=== PATIENT | female | born 1935 | race Caucasian/White ===

== ENCOUNTER 2018-10-23 16:16 | Emergency (ER) | payer MEDICARE, MEDICAID ==
[~2018-10-23] VITALS: Ht 157.5 cm; Wt 97.0 kg
[2018-10-23 16:53] VITALS: BP 136/79
== END 2018-10-23 17:24 | disposition left against medical advice (07) ==
LOC: ER 16:16
DX: K62.89 Other specified diseases of anus and rectum (principal); Z53.21 Procedure and treatment not carried out due to patient leaving prior to being seen by health care provider

== ENCOUNTER 2021-10-12 19:57 | Inpatient (IN) | payer MEDICARE, MEDICAID ==
[~2021-10-12] VITALS: Ht 165.1 cm; Wt 94.8 kg
[2021-10-12 23:37] LABS: BASOPHILS % 0.7 % (0.0-2.0); CHLORIDE 98 mEq/L (98-107); HEMATOCRIT. 42.1 % (36.0-48.0); HEMOGLOBIN. 14.3 g/dL (12.0-16.0); LYMPHOCYTES % 20.8 % (20.0-50.0); MEAN CORPUSCULAR HEMOGLOBIN 31.5 pg (28.0-32.0); MEAN CORPUSCULAR VOLUME 93.1 fL (81.0-99.0); MEAN PLATELET VOLUME 7.7 fl (7.4-10.4); MONOCYTES % 12.3 % (2.0-8.0); NEUTROPHILS % 66.2 % (40.0-76.0); PLATELET 239 x1000/uL (130-400); RED BLOOD CELL COUNT 4.53 mill/uL (4.2-5.4); RED CELL DISTRIBUTION WIDTH 13.7 % (11.6-14.6)
[2021-10-13] MEDS ORDERED: ONDANSETRON HCL 4MG/2ML INJ IV PRN (08:00)
[2021-10-13] MEDS ORDERED: ACETAMINOPHEN 325MG TABLET PO PRN (08:00)
[2021-10-13] MEDS ORDERED: LEVO100T9 PO (08:09)
[2021-10-13] MEDS ORDERED: FERR325T30 PO (08:09)
[2021-10-13] MEDS ORDERED: OMEP1CAP32 PO (08:09)
[2021-10-13] MEDS: LEVOTHYROXINE SODIUM 100MCG TABLET PO SCH (08:59)
[2021-10-13] MEDS: OMEPRAZOLE 20MG CAPSULE EXTENDED RELEASE PO SCH (08:59)
[2021-10-13] MEDS: ENOXAPARIN 40MG/0.4ML SYR SUBCUT SCH (08:59)
[2021-10-13] MEDS ORDERED: ALBUTEROL 6.7GM HFA INHALER ORI PRN (14:00)
[2021-10-13] MEDS: DEXAMETHASONE 10 MG/ML VIAL IV SCH (14:30)
[2021-10-13] MEDS: ACETAMINOPHEN 325MG TABLET PO PRN (21:14)
[2021-10-13] MEDS ORDERED: LORAZEPAM 2MG/ML CPJ IV NR (21:30)
[2021-10-13 22:32] LABS: BASOPHILS % 0.5 % (0.0-2.0); HEMATOCRIT. 39.2 % (36.0-48.0); HEMOGLOBIN. 13.5 g/dL (12.0-16.0); LYMPHOCYTES % 14.1 % (20.0-50.0); MEAN CORPUSCULAR HEMOGLOBIN 31.3 pg (28.0-32.0); MONOCYTES % 9.2 % (2.0-8.0); NEUTROPHILS % 76.2 % (40.0-76.0); PLATELET 276 x1000/uL (130-400); RED BLOOD CELL COUNT 4.31 mill/uL (4.2-5.4); RED CELL DISTRIBUTION WIDTH 13.3 % (11.6-14.6)
[2021-10-13 22:35] LABS: CHLORIDE 97 mEq/L (98-107)
[2021-10-14] MEDS: OMEPRAZOLE 20MG CAPSULE EXTENDED RELEASE PO SCH (11:03)
[2021-10-14] MEDS: DEXAMETHASONE 10 MG/ML VIAL IV SCH (11:03)
[2021-10-14] MEDS: LEVOTHYROXINE SODIUM 100MCG TABLET PO SCH (11:03)
[2021-10-14] MEDS: ENOXAPARIN 40MG/0.4ML SYR SUBCUT SCH (11:03)
[2021-10-14 21:44] VITALS: BP 119/68
[2021-10-14 22:30] VITALS: BP 119/68
[2021-10-14] MEDS ORDERED: GABA-529 PO (23:34)
[2021-10-14] MEDS ORDERED: FURO40TA5 PO (23:34)
[2021-10-14] MEDS ORDERED: ASPI-1497 PO (23:34)
[2021-10-14] MEDS ORDERED: ASCO125T PO (23:34)
[2021-10-14] MEDS ORDERED: LORA-249 PO (23:34)
[2021-10-14] MEDS ORDERED: ATEN-42 PO (23:34)
[2021-10-14] MEDS ORDERED: SPIR25TA PO (23:34)
[2021-10-14] MEDS ORDERED: MIRT-89 PO (23:34)
[2021-10-14] MEDS ORDERED: PYRI50CA PO (23:34)
[2021-10-14] MEDS ORDERED: ZINC50TA69 PO (23:34)
[2021-10-14] MEDS ORDERED: CELE100C97 PO (23:34)
[2021-10-14] MEDS ORDERED: DOCU-138 PO (23:34)
[2021-10-15 00:15] VITALS: BP 121/77
[2021-10-15] MEDS: ACETAMINOPHEN 325MG TABLET PO PRN ×2 (02:23→13:20)
[2021-10-15 04:00] VITALS: BP 148/65
[2021-10-15] MEDS ORDERED: DEXT 5%/0.45% NACL 1000ML 1,000 ML IV SCH (04:45)
[2021-10-15 07:06] LABS: BASOPHILS % 0.1 % (0.0-2.0); HEMATOCRIT. 38.5 % (36.0-48.0); HEMOGLOBIN. 13.4 g/dL (12.0-16.0); LYMPHOCYTES % 8.4 % (20.0-50.0); MEAN CORPUSCULAR HEMOGLOBIN 31.7 pg (28.0-32.0); MEAN CORPUSCULAR VOLUME 91.1 fL (81.0-99.0); MEAN PLATELET VOLUME 7.8 fl (7.4-10.4); MONOCYTES % 8.9 % (2.0-8.0); NEUTROPHILS % 82.6 % (40.0-76.0); PLATELET 320 x1000/uL (130-400); RED BLOOD CELL COUNT 4.22 mill/uL (4.2-5.4); RED CELL DISTRIBUTION WIDTH 13.4 % (11.6-14.6)
[2021-10-15 08:00] VITALS: BP 144/55
[2021-10-15 08:54] LABS: CHLORIDE 103 mEq/L (98-107)
[2021-10-15] MEDS: OMEPRAZOLE 20MG CAPSULE EXTENDED RELEASE PO SCH (09:13)
[2021-10-15] MEDS: LEVOTHYROXINE SODIUM 100MCG TABLET PO SCH (09:13)
[2021-10-15] MEDS: ENOXAPARIN 40MG/0.4ML SYR SUBCUT SCH (09:14)
[2021-10-15] MEDS: DEXAMETHASONE 10 MG/ML VIAL IV SCH (09:25)
[2021-10-15] MEDS ORDERED: INFLUENZA VACCINE 05/PF 0.5 ML SYRINGE IM ONE (12:00)
[2021-10-15] MEDS ORDERED: PNEUMOCOCCAL 23-VAL P-SAC VAC 0.5 ML IM ONE (12:00)
[2021-10-15 16:00] VITALS: BP 127/54
[2021-10-15] MEDS ORDERED: SENNOSIDES 8.6MG TABLET PO PRN (16:45)
[2021-10-15] MEDS: DOCUSATE SODIUM 100MG CAPSULE PO SCH (17:51)
[2021-10-15 20:00] VITALS: BP 120/60
[2021-10-16] VITALS: BP 147/68
[2021-10-16 04:00] VITALS: BP 146/76
[2021-10-16] MEDS: DEXT 5%/0.9% NACL 1,000 ML IV SCH ×2 (05:18→16:05)
[2021-10-16 08:21] LABS: BASOPHILS % 0.1 % (0.0-2.0); HEMATOCRIT. 36.8 % (36.0-48.0); HEMOGLOBIN. 12.6 g/dL (12.0-16.0); LYMPHOCYTES % 9.7 % (20.0-50.0); MEAN CORPUSCULAR HEMOGLOBIN 31.4 pg (28.0-32.0); MEAN CORPUSCULAR VOLUME 91.9 fL (81.0-99.0); MONOCYTES % 9.7 % (2.0-8.0); NEUTROPHILS % 80.5 % (40.0-76.0); PLATELET 329 x1000/uL (130-400); RED BLOOD CELL COUNT 4.01 mill/uL (4.2-5.4); RED CELL DISTRIBUTION WIDTH 13.3 % (11.6-14.6)
[2021-10-16 08:45] LABS: CHLORIDE 103 mEq/L (98-107)
[2021-10-16 08:59] LABS: PHOSPHORUS 1.9 mg/dL (2.5-4.9)
[2021-10-16] MEDS: DOCUSATE SODIUM 100MG CAPSULE PO SCH ×2 (09:08→16:05)
[2021-10-16] MEDS: ENOXAPARIN 40MG/0.4ML SYR SUBCUT SCH (09:09)
[2021-10-16] MEDS: LEVOTHYROXINE SODIUM 100MCG TABLET PO SCH (09:09)
[2021-10-16] MEDS: DEXAMETHASONE 10 MG/ML VIAL IV SCH (09:10)
[2021-10-16] MEDS: FAMOTIDINE 20MG TABLET PO SCH (09:10)
[2021-10-16 12:00] VITALS: BP 150/75
[2021-10-16] MEDS: ASPIRIN 81MG TABLET PO SCH (12:17)
[2021-10-16] MEDS: ACETAMINOPHEN 325MG TABLET PO PRN (12:29)
[2021-10-16] MEDS: GUAIFENESIN 200MG/10ML SUGAR FREE UDC PO PRN ×2 (13:21→17:49)
[2021-10-16 16:00] VITALS: BP 137/59
[2021-10-16 20:00] VITALS: BP 147/44
[2021-10-17] VITALS: BP 180/75
[2021-10-17 01:30] VITALS: BP 141/56
[2021-10-17 08:00] VITALS: BP 176/63
[2021-10-17] MEDS: DOCUSATE SODIUM 100MG CAPSULE PO SCH ×2 (09:43→18:34)
[2021-10-17] MEDS: FAMOTIDINE 20MG TABLET PO SCH (09:43)
[2021-10-17] MEDS: ASPIRIN 81MG TABLET PO SCH (09:43)
[2021-10-17] MEDS: DEXAMETHASONE 10 MG/ML VIAL IV SCH (09:43)
[2021-10-17] MEDS: LEVOTHYROXINE SODIUM 100MCG TABLET PO SCH (09:44)
[2021-10-17] MEDS: ENOXAPARIN 40MG/0.4ML SYR SUBCUT SCH (09:45)
[2021-10-17 12:00] VITALS: BP 132/68
[2021-10-17 16:00] VITALS: BP 158/74
[2021-10-17] MEDS: DEXT 5%/0.9% NACL 1,000 ML IV SCH ×2 (18:35→20:31)
[2021-10-17 20:00] VITALS: BP 182/64
[2021-10-17] MEDS: CLONIDINE 0.1MG TABLET PO PRN (21:08)
[2021-10-18] VITALS: BP 164/66
[2021-10-18 04:00] VITALS: BP 163/58
[2021-10-18] MEDS: LEVOTHYROXINE SODIUM 100MCG TABLET PO SCH (06:11)
[2021-10-18] MEDS: CLONIDINE 0.1MG TABLET PO PRN (06:12)
[2021-10-18] MEDS: DEXT 5%/0.9% NACL 1,000 ML IV SCH ×2 (06:13→16:15)
[2021-10-18 08:00] VITALS: BP 159/59
[2021-10-18 09:02] LABS: BASOPHILS % 0.1 % (0.0-2.0); EOSINOPHILS % 0.1 % (0.0-5.0); HEMATOCRIT. 34.7 % (36.0-48.0); LYMPHOCYTES % 18.2 % (20.0-50.0); MEAN CORPUSCULAR HEMOGLOBIN 31.4 pg (28.0-32.0); MEAN CORPUSCULAR VOLUME 90.9 fL (81.0-99.0); MEAN PLATELET VOLUME 7.6 fl (7.4-10.4); MONOCYTES % 11.2 % (2.0-8.0); NEUTROPHILS % 70.4 % (40.0-76.0); PLATELET 350 x1000/uL (130-400); RED BLOOD CELL COUNT 3.82 mill/uL (4.2-5.4); RED CELL DISTRIBUTION WIDTH 13.2 % (11.6-14.6)
[2021-10-18 09:12] LABS: CHLORIDE 107 mEq/L (98-107)
[2021-10-18 09:17] LABS: PHOSPHORUS 1.1 mg/dL (2.5-4.9)
[2021-10-18] MEDS: FAMOTIDINE 20MG TABLET PO SCH (09:24)
[2021-10-18] MEDS: ASPIRIN 81MG TABLET PO SCH (09:24)
[2021-10-18] MEDS: DEXAMETHASONE 10 MG/ML VIAL IV SCH (09:24)
[2021-10-18] MEDS: DOCUSATE SODIUM 100MG CAPSULE PO SCH ×2 (09:24→16:15)
[2021-10-18] MEDS: ENOXAPARIN 40MG/0.4ML SYR SUBCUT SCH (09:25)
[2021-10-18] MEDS ORDERED: POTASSIUM CHLORIDE 20MEQ/PACKET PO NR (11:00)
[2021-10-18 12:00] VITALS: BP 170/70
[2021-10-18 16:00] VITALS: BP 158/53
[2021-10-18] MEDS: ACETAMINOPHEN 325MG TABLET PO PRN (18:53)
[2021-10-18] MEDS: GUAIFENESIN 200MG/10ML SUGAR FREE UDC PO PRN (18:53)
[2021-10-18 20:00] VITALS: BP 171/62
[2021-10-18] MEDS ORDERED: HYDRALAZINE 20MG/ML VIAL IV PRN (22:30)
[2021-10-19] VITALS (9 sets, daily range): BP systolic 110–185; BP diastolic 54–91
[2021-10-19] MEDS: DEXT 5%/0.9% NACL 1,000 ML IV SCH ×3 (03:11→23:43)
[2021-10-19] MEDS: FAMOTIDINE 20MG TABLET PO SCH (08:31)
[2021-10-19] MEDS: LEVOTHYROXINE SODIUM 100MCG TABLET PO SCH (08:31)
[2021-10-19] MEDS: DOCUSATE SODIUM 100MG CAPSULE PO SCH ×2 (08:31→18:00)
[2021-10-19] MEDS: ASPIRIN 81MG TABLET PO SCH (08:31)
[2021-10-19] MEDS: ENOXAPARIN 40MG/0.4ML SYR SUBCUT SCH (08:32)
[2021-10-19] MEDS: DEXAMETHASONE 10 MG/ML VIAL IV SCH (09:00)
[2021-10-19 10:45] LABS: BASOPHILS % 0.1 % (0.0-2.0); EOSINOPHILS % 0.2 % (0.0-5.0); LYMPHOCYTES % 15.2 % (20.0-50.0); MEAN CORPUSCULAR VOLUME 90.7 fL (81.0-99.0); MEAN PLATELET VOLUME 7.7 fl (7.4-10.4); MONOCYTES % 11.1 % (2.0-8.0); NEUTROPHILS % 73.4 % (40.0-76.0); PLATELET 371 x1000/uL (130-400); RED CELL DISTRIBUTION WIDTH 13.3 % (11.6-14.6)
[2021-10-19] MEDS ORDERED: POTASSIUM PHOS,M-BASIC-D-BASIC 30 MMOL in SODIUM CHLORIDE 0.9% 500 ML IV NR (11:30)
[2021-10-19 11:53] LABS: CHLORIDE 106 mEq/L (98-107)
[2021-10-19] MEDS ORDERED: POTASSIUM CHLORIDE 20MEQ TABLET SR PO NR (18:30)
[2021-10-19] MEDS ORDERED: DEXTL PO (18:36)
[2021-10-19] MEDS ORDERED: MED4 MT (18:36)
[2021-10-19] MEDS ORDERED: ALBU6.7H9 ORI (18:36)
[2021-10-19] MEDS: HYDRALAZINE HCL 25MG TABLET PO SCH (21:24)
[2021-10-20] VITALS: BP 130/61
[2021-10-20] MEDS ORDERED: ALBUTEROL (0.083%) 2.5MG/3ML NEB HHN PRN (03:45)
[2021-10-20 04:00] VITALS: BP 124/74
[2021-10-20 08:00] VITALS: BP 111/71
[2021-10-20] MEDS: ASPIRIN 81MG TABLET PO SCH (10:08)
[2021-10-20] MEDS: HYDRALAZINE HCL 25MG TABLET PO SCH (10:08)
[2021-10-20] MEDS: LEVOTHYROXINE SODIUM 100MCG TABLET PO SCH (10:09)
[2021-10-20] MEDS: DOCUSATE SODIUM 100MG CAPSULE PO SCH ×2 (10:09→17:07)
[2021-10-20] MEDS: FAMOTIDINE 20MG TABLET PO SCH (10:09)
[2021-10-20] MEDS: DEXAMETHASONE 10 MG/ML VIAL IV SCH (10:09)
[2021-10-20] MEDS: ENOXAPARIN 40MG/0.4ML SYR SUBCUT SCH (10:10)
[2021-10-20] MEDS: DEXT 5%/0.9% NACL 1,000 ML IV SCH (10:10)
[2021-10-20] MEDS ORDERED: MAGNESIUM 2 G PREMIX 50 ML IV NR (11:00)
[2021-10-20 12:00] VITALS: BP 156/94
[2021-10-20 16:00] VITALS: BP 133/60
[2021-10-20 16:29] VITALS: BP 133/60
[2021-10-20 16:35] LABS: BASOPHILS % 0.2 % (0.0-2.0); EOSINOPHILS % 0.3 % (0.0-5.0); HEMATOCRIT. 38.8 % (36.0-48.0); LYMPHOCYTES % 7.6 % (20.0-50.0); MEAN CORPUSCULAR HEMOGLOBIN 30.8 pg (28.0-32.0); MEAN CORPUSCULAR VOLUME 92.1 fL (81.0-99.0); MEAN PLATELET VOLUME 7.8 fl (7.4-10.4); MONOCYTES % 3.2 % (2.0-8.0); NEUTROPHILS % 88.7 % (40.0-76.0); PLATELET 372 x1000/uL (130-400); RED BLOOD CELL COUNT 4.21 mill/uL (4.2-5.4); RED CELL DISTRIBUTION WIDTH 13.2 % (11.6-14.6)
[2021-10-20 16:40] LABS: CHLORIDE 105 mEq/L (98-107)
[2021-10-20 16:45] LABS: PHOSPHORUS 2.1 mg/dL (2.5-4.9)
[2021-10-20] MEDS ORDERED: POTASSIUM-SODIUM PHOSPHATE POWDER PACKET PO NR (17:00)
== END 2021-10-20 17:30 | disposition home health service (06) | DRG 871 ==
LOC: ER 19:57 → 7WST 10-13 02:44 → SUPCPDRO 10-13 07:48 → ENRESERV 10-14 19:44 → 8WST 10-20 03:23
PROVIDERS: ADMIT Internal Medicine; ATTEND Internal Medicine
PROC: 05HY33Z Insertion of Infusion Device into Upper Vein, Percutaneous Approach (ICD-10-PCS; principal; 2021-10-17)
PROC: B54MZZA Ultrasonography of Right Upper Extremity Veins, Guidance (ICD-10-PCS; 2021-10-17)
DX: A41.89 Other specified sepsis (principal); U07.1 COVID-19; J96.01 Acute respiratory failure with hypoxia; J12.82 Pneumonia due to coronavirus disease 2019; E87.1 Hypo-osmolality and hyponatremia; N17.9 Acute kidney failure, unspecified; Z94.0 Kidney transplant status; T86.19 Other complication of kidney transplant; F03.90 Unspecified dementia, unspecified severity, without behavioral disturbance, psychotic disturbance, mood disturbance, and anxiety; I25.10 Atherosclerotic heart disease of native coronary artery without angina pectoris; K43.9 Ventral hernia without obstruction or gangrene; E66.9 Obesity, unspecified; N18.9 Chronic kidney disease, unspecified; R13.10 Dysphagia, unspecified; E03.9 Hypothyroidism, unspecified; I13.10 Hypertensive heart and chronic kidney disease without heart failure, with stage 1 through stage 4 chronic kidney disease, or unspecified chronic kidney disease; K42.9 Umbilical hernia without obstruction or gangrene; K76.0 Fatty (change of) liver, not elsewhere classified; M25.551 Pain in right hip; R32 Unspecified urinary incontinence; R65.20 Severe sepsis without septic shock; K44.9 Diaphragmatic hernia without obstruction or gangrene; Z88.2 Allergy status to sulfonamides; Z88.5 Allergy status to narcotic agent; Z90.49 Acquired absence of other specified parts of digestive tract; Y99.8 Other external cause status; Z68.34 Body mass index [BMI] 34.0-34.9, adult; W18.39XA Other fall on same level, initial encounter; Y92.89 Other specified places as the place of occurrence of the external cause; Y93.89 Activity, other specified; Y83.8 Other surgical procedures as the cause of abnormal reaction of the patient, or of later complication, without mention of misadventure at the time of the procedure; R00.1 Bradycardia, unspecified
CPT/HCPCS: 36415; 71045; 74018; 74176; 76937; 80048; 80053; 80076; 83735; 83880; 84100; 84484; 85025; 87426; 92610; 93005; 97161; 97165; 99291; C1725; C1769; C1893; J1100; J1650; J2060; J2405; J3475; J3490; J7040; J7042

== ENCOUNTER 2021-11-21 21:46 | Emergency (ER) | payer MEDICARE, MEDICAID ==
[~2021-11-21] VITALS: Ht 157.5 cm; Wt 75.0 kg
[~2021-11-21 21:46] MED LIST: ALBU6.7H9 ORI; ASCO125T PO; ASPI-1497 PO; ATEN-42 PO; CELE100C97 PO; DEXTL PO; DOCU-138 PO; FERR325T30 PO; FURO40TA5 PO; GABA-529 PO; LEVO100T9 PO; LORA-249 PO; MED4 MT; MIRT-89 PO; OMEP1CAP32 PO; PYRI50CA PO; SPIR25TA PO; ZINC50TA69 PO
[2021-11-21] MEDS ORDERED: MORPHINE SULFATE 4 MG/ML CPJ (NOT FOR IM USE) IV STA (22:00)
[2021-11-21] MEDS ORDERED: SODIUM CHLORIDE 0.9% 500 ML IV ONE (22:04)
[2021-11-21 22:38] LABS: CHLORIDE 107 mEq/L (98-107)
[2021-11-21 22:39] LABS: BASOPHILS % 1.2 % (0.0-2.0); EOSINOPHILS % 3.4 % (0.0-5.0); HEMATOCRIT. 36.6 % (36.0-48.0); HEMOGLOBIN. 12.1 g/dL (12.0-16.0); LYMPHOCYTES % 21.8 % (20.0-50.0); MEAN CORPUSCULAR HEMOGLOBIN 31.4 pg (28.0-32.0); MEAN CORPUSCULAR VOLUME 94.8 fL (81.0-99.0); MEAN PLATELET VOLUME 7.6 fl (7.4-10.4); MONOCYTES % 8.1 % (2.0-8.0); NEUTROPHILS % 65.5 % (40.0-76.0); PLATELET 309 x1000/uL (130-400); RED BLOOD CELL COUNT 3.86 mill/uL (4.2-5.4); RED CELL DISTRIBUTION WIDTH 15.3 % (11.6-14.6)
[2021-11-21 22:41] LABS: CLARITY URINE CLOUDY (CLEAR); COLOR URINE DARK YELLOW (YELLOW); KETONES URINE TRACE (NEGATIVE); LEUKOCYTE ESTERASE URINE TRACE (NEGATIVE); NITRITE URINE NEGATIVE (NEGATIVE); OCCULT BLOOD URINE NEGATIVE (NEGATIVE); PROTEIN URINE 2+ (NEGATIVE); SPECIFIC GRAVITY URINE 1.039 (1.005-1.030)
[2021-11-22] MEDS ORDERED: IOHEXOL-300 100 ML BOTTLE ONE (04:44)
[2021-11-22] MEDS ORDERED: MORPHINE SULFATE 4 MG/ML CPJ (NOT FOR IM USE) IV STA (07:04)
[2021-11-22 09:50] VITALS: BP 128/54
== END 2021-11-22 09:41 | disposition home or self-care (01) ==
LOC: ER 21:46
DX: R10.9 Unspecified abdominal pain (principal); F03.90 Unspecified dementia, unspecified severity, without behavioral disturbance, psychotic disturbance, mood disturbance, and anxiety; I11.9 Hypertensive heart disease without heart failure; E05.90 Thyrotoxicosis, unspecified without thyrotoxic crisis or storm; I25.10 Atherosclerotic heart disease of native coronary artery without angina pectoris; Z88.2 Allergy status to sulfonamides; Z79.82 Long term (current) use of aspirin; Z98.890 Other specified postprocedural states
CPT/HCPCS: 36415; 71045; 74177; 80053; 81003; 83605; 83690; 84484; 85025; 93005; 96361; 96374; 99285; J2270; Q9967

== ENCOUNTER 2021-12-10 04:29 | Inpatient (IN) | payer MEDICARE, MEDICAID ==
[~2021-12-10] VITALS: Ht 160 cm; Wt 103.9 kg
[2021-12-10] MEDS ORDERED: METHYLPREDNISOLONE SOD SUCC 125 MG/2 ML VIAL IV STA (04:38)
[2021-12-10] MEDS ORDERED: ALBUTEROL (0.083%) 2.5MG/3ML NEB HHN STA ×2 (04:38→06:39)
[2021-12-10] MEDS ORDERED: IPRATROPIUM BROMIDE (0.02%) 0.5MG/2.5ML NEB HHN STA ×2 (04:38→06:39)
[2021-12-10] MEDS ORDERED: MAGNESIUM 2 G PREMIX 50 ML IV ONE (04:45)
[2021-12-10 05:23] LABS: BASOPHILS % 0.8 % (0.0-2.0); HEMATOCRIT. 35.8 % (36.0-48.0); HEMOGLOBIN. 11.8 g/dL (12.0-16.0); LYMPHOCYTES % 25.4 % (20.0-50.0); MEAN CORPUSCULAR VOLUME 96.8 fL (81.0-99.0); MEAN PLATELET VOLUME 7.3 fl (7.4-10.4); MONOCYTES % 4.7 % (2.0-8.0); NEUTROPHILS % 64.1 % (40.0-76.0); PLATELET 318 x1000/uL (130-400); RED CELL DISTRIBUTION WIDTH 15.6 % (11.6-14.6)
[2021-12-10 05:35] LABS: CHLORIDE 103 mEq/L (98-107)
[2021-12-10] MEDS ORDERED: SODIUM CHLORIDE 0.9% 1,000 ML IV ONE (06:45)
[2021-12-10] MEDS ORDERED: PIPERACILLIN/TAZ 3.375G PREMIX 50 ML IV NR (07:45)
[2021-12-10] MEDS ORDERED: DOCUSATE SODIUM 100MG CAPSULE PO PRN (07:45)
[2021-12-10] MEDS ORDERED: NITROGLYCERIN 0.4MG TABLET SL SL PRN (07:45)
[2021-12-10] MEDS ORDERED: AZITHROMYCIN 500MG/250ML 250 ML IV NR ×2 (07:45→08:30)
[2021-12-10] MEDS ORDERED: IPRATROPIUM/ALBUTEROL 0.5-3(2.5)MG/3ML NEB NEB PRN (07:45)
[2021-12-10] MEDS ORDERED: ZOLPIDEM TARTRATE 5MG TABLET PO PRN (07:45)
[2021-12-10] MEDS ORDERED: KETOROLAC 15MG/ML VIAL IV PRN (07:45)
[2021-12-10] MEDS ORDERED: ONDANSETRON HCL 4MG/2ML INJ IV PRN (07:45)
[2021-12-10] MEDS ORDERED: ENOXAPARIN 40MG/0.4ML SYR SUBCUT SCH (07:45)
[2021-12-10] MEDS ORDERED: NA PHOS,M-B/NA PHOS,DI-BA ENEMA 118ML PR PRN (07:45)
[2021-12-10] MEDS ORDERED: MAGNESIUM/ALUMINUM HYDROXIDE/SIMETHICONE 30ML UDC PO PRN (07:45)
[2021-12-10] MEDS ORDERED: ACETAMINOPHEN 325MG TABLET PO PRN (07:45)
[2021-12-10] MEDS ORDERED: SODIUM CHLORIDE 0.9% 1000ML BAG (SEPSIS BOLUS) IV ONE (08:00)
[2021-12-10 08:15] LABS: ETHANOL BLOOD < 10 mg/dL
[2021-12-10 08:17] LABS: TOTAL IRON BINDING CAPACITY 285 ug/dL (250-450)
[2021-12-10 08:18] LABS: LDL CHOLESTEROL 83 mg/dL (5-100)
[2021-12-10 08:20] LABS: HDL CHOLESTEROL 49 mg/dL (40-59)
[2021-12-10 08:38] LABS: FOLIC ACID (FOLATE) SERUM 5.7 ng/mL (>5.38)
[2021-12-10] MEDS ORDERED: ASCORBIC ACID 500 MG TABLET PO SCH (09:00)
[2021-12-10] MEDS ORDERED: CHOLECALCIFEROL (D3) 1000 UNIT TABLET PO SCH (09:00)
[2021-12-10] MEDS ORDERED: ASPIRIN 325MG EC TABLET PO SCH (09:00)
[2021-12-10] MEDS ORDERED: CEFTRIAXONE 1 G PREMIX 50 ML IV NR (09:00)
[2021-12-10] MEDS ORDERED: ZINC SULFATE 220 MG ( 50 ) CAPSULE PO SCH (09:00)
[2021-12-10] MEDS ORDERED: FAMOTIDINE 20MG TABLET PO SCH (09:00)
[2021-12-10] MEDS: ASPIRIN 325MG EC TABLET PO SCH (09:32)
[2021-12-10] MEDS: ZINC SULFATE 220 MG ( 50 ) CAPSULE PO SCH (09:32)
[2021-12-10] MEDS: FAMOTIDINE 20MG TABLET PO SCH ×2 (09:32→20:50)
[2021-12-10] MEDS: ASCORBIC ACID 500 MG TABLET PO SCH ×2 (09:32→20:50)
[2021-12-10] MEDS: LEVOTHYROXINE SODIUM 112MCG TABLET PO SCH (09:32)
[2021-12-10] MEDS: CHOLECALCIFEROL (D3) 1000 UNIT TABLET PO SCH (09:33)
[2021-12-10] MEDS: ENOXAPARIN 30MG/0.3ML SYR SUBCUT SCH ×2 (09:33→20:50)
[2021-12-10 14:55] LABS: CREATINE KINASE MB FRACTION 4.1 ng/mL (0.5-3.6)
[2021-12-10 16:11] VITALS: BP 160/86
[2021-12-10 16:30] VITALS: BP 160/86
[2021-12-10 20:00] VITALS: BP 157/83
[2021-12-10 23:24] LABS: CREATINE KINASE MB FRACTION 4.3 ng/mL (0.5-3.6)
[2021-12-11] VITALS: BP_SYST 156; BP_SYST 166; BP_DIAS 86
[2021-12-11 04:17] VITALS: BP 133/79
[2021-12-11 06:07] LABS: BASOPHILS % 0.1 % (0.0-2.0); HEMATOCRIT. 31.3 % (36.0-48.0); HEMOGLOBIN. 10.6 g/dL (12.0-16.0); LYMPHOCYTES % 10.9 % (20.0-50.0); MEAN CORPUSCULAR HEMOGLOBIN 32.3 pg (28.0-32.0); MEAN CORPUSCULAR VOLUME 95.3 fL (81.0-99.0); MEAN PLATELET VOLUME 7.6 fl (7.4-10.4); MONOCYTES % 7.6 % (2.0-8.0); NEUTROPHILS % 81.4 % (40.0-76.0); PLATELET 330 x1000/uL (130-400); RED BLOOD CELL COUNT 3.28 mill/uL (4.2-5.4); RED CELL DISTRIBUTION WIDTH 15.4 % (11.6-14.6)
[2021-12-11 06:31] LABS: CHLORIDE 104 mEq/L (98-107)
[2021-12-11 06:41] LABS: PHOSPHORUS 2.5 mg/dL (2.5-4.9)
[2021-12-11] MEDS: LEVOTHYROXINE SODIUM 112MCG TABLET PO SCH (07:00)
[2021-12-11 08:00] VITALS: BP 167/81
[2021-12-11] MEDS ORDERED: AZITHROMYCIN 500 MG in DEXT 5% WATER 250 ML IV SCH ×2 (08:00→11:00)
[2021-12-11] MEDS ORDERED: CEFTRIAXONE 1,000 MG in DEXTROSE 5% WATER 50 ML IV SCH ×2 (09:00→10:00)
[2021-12-11] MEDS: CHOLECALCIFEROL (D3) 1000 UNIT TABLET PO SCH (09:36)
[2021-12-11] MEDS: ASCORBIC ACID 500 MG TABLET PO SCH ×2 (09:37→21:01)
[2021-12-11] MEDS: ASPIRIN 325MG EC TABLET PO SCH (09:37)
[2021-12-11] MEDS: FAMOTIDINE 20MG TABLET PO SCH ×2 (09:37→20:04)
[2021-12-11] MEDS: CLONIDINE 0.1MG TABLET PO PRN (09:37)
[2021-12-11] MEDS: ZINC SULFATE 220 MG ( 50 ) CAPSULE PO SCH (09:37)
[2021-12-11] MEDS: ENOXAPARIN 30MG/0.3ML SYR SUBCUT SCH ×2 (09:39→20:05)
[2021-12-11] MEDS ORDERED: CELECOXIB 100MG CAPSULE PO SCH (10:00)
[2021-12-11] MEDS: MIRTAZAPINE 15MG TABLET PO SCH (10:28)
[2021-12-11] MEDS: SPIRONOLACTONE 25MG TABLET PO SCH (10:28)
[2021-12-11] MEDS: FUROSEMIDE 40MG TABLET PO SCH (10:28)
[2021-12-11] MEDS ORDERED: ATENOLOL 25MG TABLET PO SCH (11:00)
[2021-12-11 12:00] VITALS: BP 166/64
[2021-12-11 12:02] LABS: CLARITY URINE CLEAR (CLEAR); COLOR URINE YELLOW (YELLOW); KETONES URINE TRACE (NEGATIVE); LEUKOCYTE ESTERASE URINE NEGATIVE (NEGATIVE); NITRITE URINE NEGATIVE (NEGATIVE); OCCULT BLOOD URINE NEGATIVE (NEGATIVE); PROTEIN URINE TRACE (NEGATIVE)
[2021-12-11 12:19] LABS: *COCAINE SCREEN URINE NEGATIVE (NEGATIVE); METHADONE URINE SCREEN NEGATIVE (NEGATIVE); OPIATES URINE SCREEN NEGATIVE (NEGATIVE); PHENCYCLIDINE URINE SCREEN NEGATIVE (NEGATIVE)
[2021-12-11 12:20] LABS: *AMPHETAMINES SCREEN URINE NEGATIVE (NEGATIVE); *BARBITURATES SCREEN URINE NEGATIVE (NEGATIVE); *BENZODIAZEPINES SCREEN URINE NEGATIVE (NEGATIVE); CANNABINOID URINE SCREEN NEGATIVE (NEGATIVE)
[2021-12-11] MEDS ORDERED: CELECOXIB 100MG CAPSULE PO PRN (13:15)
[2021-12-11] MEDS ORDERED: DIATR MEGLU/DIATRIZOATE SOLN 30ML PO NR (14:45)
[2021-12-11] MEDS: HYDROXYZINE 10 MG TABLET PO PRN (15:38)
[2021-12-11 16:00] VITALS: BP 133/72
[2021-12-11 20:00] VITALS: BP 157/86
[2021-12-11] MEDS: ZOLPIDEM TARTRATE 5MG TABLET PO PRN (20:04)
[2021-12-11] MEDS: BUDESONIDE 0.5MG/2ML NEB HHN SCH (21:01)
[2021-12-11] MEDS ORDERED: HYDRALAZINE 20MG/ML VIAL IV PRN (22:00)
[2021-12-11] MEDS ORDERED: HYDRALAZINE HCL 25MG TABLET PO NR (22:00)
[2021-12-12] VITALS: BP 158/89
[2021-12-12] MEDS: IPRATROPIUM/ALBUTEROL 0.5-3(2.5)MG/3ML NEB HHN SCH ×5 (01:42→21:20)
[2021-12-12] MEDS: HYDROXYZINE 10 MG TABLET PO PRN ×3 (03:30→20:14)
[2021-12-12 04:00] VITALS: BP 146/92
[2021-12-12] MEDS: LEVOTHYROXINE SODIUM 112MCG TABLET PO SCH (06:12)
[2021-12-12 08:00] VITALS: BP 147/99
[2021-12-12] MEDS ORDERED: HYDROXYZINE 25MG TABLET PO SCH (08:42)
[2021-12-12] MEDS: ZINC SULFATE 220 MG ( 50 ) CAPSULE PO SCH (09:21)
[2021-12-12] MEDS: MIRTAZAPINE 15MG TABLET PO SCH (09:21)
[2021-12-12] MEDS: ASCORBIC ACID 500 MG TABLET PO SCH ×2 (09:21→20:14)
[2021-12-12] MEDS: FAMOTIDINE 20MG TABLET PO SCH ×2 (09:21→20:14)
[2021-12-12] MEDS: ASPIRIN 81MG EC TABLET PO SCH (09:21)
[2021-12-12] MEDS: FUROSEMIDE 40MG TABLET PO SCH (09:21)
[2021-12-12] MEDS: GABAPENTIN 100MG CAPSULE PO SCH (09:21)
[2021-12-12] MEDS: CHOLECALCIFEROL (D3) 1000 UNIT TABLET PO SCH (09:21)
[2021-12-12] MEDS: FERROUS SULFATE 325MG TABLET PO SCH (09:21)
[2021-12-12] MEDS: HYDRALAZINE HCL 25MG TABLET PO SCH ×2 (09:22→20:14)
[2021-12-12] MEDS: SPIRONOLACTONE 25MG TABLET PO SCH (09:22)
[2021-12-12] MEDS: ENOXAPARIN 30MG/0.3ML SYR SUBCUT SCH ×2 (09:22→20:15)
[2021-12-12] MEDS: BUDESONIDE 0.5MG/2ML NEB HHN SCH ×2 (09:29→21:20)
[2021-12-12 10:04] LABS: BG BASE EXCESS 6.3 mmol/L (-2.0-2.0); BG CARBOXYHEMOGLOBIN 0.3 % (0.5-1.5); BG DEOXYHEMOGLOBIN 11.8 % (0.0-5.0); BG FRACTION INSPIRED OXYGEN 21; BG METHEMOGLOBIN 0.4 % (0.0-1.5); BG OXYGEN SATURATION 88.1 % (92.0-98.5); BG OXYHEMOGLOBIN 87.5 % (94.0-97.0); BG PH 7.415 (7.350-7.450); BG PO2 54.6 mmHg (75.0-100.0); BG SAMPLE SITE RIGHT RADIAL; BG TOTAL HEMOGLOBIN 11.5 g/dL (12.0-18.0); BG VENT MODE ROOM AIR
[2021-12-12 12:00] VITALS: BP 96/67
[2021-12-12] MEDS: SODIUM CHLORIDE 0.9% 1,000 ML IV SCH (12:00)
[2021-12-12 13:06] LABS: BASOPHILS % 0.6 % (0.0-2.0); EOSINOPHILS % 2.2 % (0.0-5.0); HEMATOCRIT. 29.7 % (36.0-48.0); HEMOGLOBIN. 10.3 g/dL (12.0-16.0); LYMPHOCYTES % 20.9 % (20.0-50.0); MEAN CORPUSCULAR HEMOGLOBIN 32.2 pg (28.0-32.0); MEAN CORPUSCULAR VOLUME 93.4 fL (81.0-99.0); MEAN PLATELET VOLUME 7.4 fl (7.4-10.4); MONOCYTES % 8.1 % (2.0-8.0); NEUTROPHILS % 68.2 % (40.0-76.0); PLATELET 311 x1000/uL (130-400); RED BLOOD CELL COUNT 3.18 mill/uL (4.2-5.4); RED CELL DISTRIBUTION WIDTH 15.5 % (11.6-14.6)
[2021-12-12 15:35] LABS: CHLORIDE 100 mEq/L (98-107)
[2021-12-12 15:42] LABS: PHOSPHORUS 2.6 mg/dL (2.5-4.9)
[2021-12-12 16:00] VITALS: BP 131/85
[2021-12-12] MEDS: GUAIFENESIN 200MG/10ML SUGAR FREE UDC PO PRN (20:13)
[2021-12-12] MEDS: ZOLPIDEM TARTRATE 5MG TABLET PO PRN (20:13)
[2021-12-12 20:26] VITALS: BP 142/59
[2021-12-12] MEDS ORDERED: LORAZEPAM 2MG/ML CPJ IV PRN (23:15)
[2021-12-12] MEDS ORDERED: LORAZEPAM 2MG/ML CPJ IV NR (23:15)
[2021-12-13] VITALS (8 sets, daily range): BP systolic 95–183; BP diastolic 42–109
[2021-12-13] MEDS: IPRATROPIUM/ALBUTEROL 0.5-3(2.5)MG/3ML NEB HHN SCH ×5 (01:48→21:24)
[2021-12-13] MEDS: LEVOTHYROXINE SODIUM 112MCG TABLET PO SCH (07:23)
[2021-12-13] MEDS: GUAIFENESIN 200MG/10ML SUGAR FREE UDC PO PRN ×2 (07:23→22:33)
[2021-12-13] MEDS: HYDROXYZINE 25MG TABLET PO PRN (07:24)
[2021-12-13] MEDS ORDERED: IOHEXOL-350 100 ML BOTTLE ONE ×2 (08:53→11:29)
[2021-12-13] MEDS: ASPIRIN 81MG EC TABLET PO SCH ×2 (09:00→09:36)
[2021-12-13] MEDS: FAMOTIDINE 20MG TABLET PO SCH ×3 (09:00→21:15)
[2021-12-13] MEDS: CHOLECALCIFEROL (D3) 1000 UNIT TABLET PO SCH ×2 (09:00→09:35)
[2021-12-13] MEDS: MIRTAZAPINE 15MG TABLET PO SCH ×2 (09:00→09:36)
[2021-12-13] MEDS: ZINC SULFATE 220 MG ( 50 ) CAPSULE PO SCH ×2 (09:00→09:35)
[2021-12-13] MEDS: ASCORBIC ACID 500 MG TABLET PO SCH ×3 (09:00→21:15)
[2021-12-13] MEDS: HYDRALAZINE HCL 25MG TABLET PO SCH ×3 (09:00→22:33)
[2021-12-13] MEDS: GABAPENTIN 100MG CAPSULE PO SCH ×2 (09:00→09:36)
[2021-12-13] MEDS ORDERED: FUROSEMIDE 40MG TABLET PO SCH (09:00)
[2021-12-13] MEDS: SPIRONOLACTONE 25MG TABLET PO SCH ×2 (09:00→09:35)
[2021-12-13] MEDS: ENOXAPARIN 30MG/0.3ML SYR SUBCUT SCH ×2 (09:36→21:14)
[2021-12-13 09:53] LABS: BG BASE EXCESS 4.5 mmol/L (-2.0-2.0); BG CARBOXYHEMOGLOBIN 0.3 % (0.5-1.5); BG DEOXYHEMOGLOBIN 2.5 % (0.0-5.0); BG FRACTION INSPIRED OXYGEN 28; BG HCO3 ACT 31.9 mmol/L (22.0-26.0); BG METHEMOGLOBIN 0.2 % (0.0-1.5); BG OXYGEN SATURATION 97.5 % (92.0-98.5); BG PCO2 62.1 mmHg (35.0-45.0); BG PH 7.328 (7.350-7.450); BG PO2 111.5 mmHg (75.0-100.0); BG SAMPLE SITE RIGHT RADIAL; BG VENT MODE NASAL CANNULA
[2021-12-13] MEDS: SODIUM CHLORIDE 0.9% 1,000 ML IV SCH (10:30)
[2021-12-13] MEDS ORDERED: FLUMAZENIL 0.1 MG/ML 5ML VIAL IV SCH (12:00)
[2021-12-13 13:16] LABS: BG BASE EXCESS 5.8 mmol/L (-2.0-2.0); BG CARBOXYHEMOGLOBIN 0.1 % (0.5-1.5); BG DEOXYHEMOGLOBIN 3.2 % (0.0-5.0); BG FRACTION INSPIRED OXYGEN 28; BG OXYGEN SATURATION 96.8 % (92.0-98.5); BG OXYHEMOGLOBIN 96.7 % (94.0-97.0); BG PCO2 54.7 mmHg (35.0-45.0); BG PH 7.385 (7.350-7.450); BG PO2 92.2 mmHg (75.0-100.0); BG SAMPLE SITE RIGHT RADIAL; BG TOTAL HEMOGLOBIN 11.1 g/dL (12.0-18.0); BG VENT MODE MASK - BIPAP
[2021-12-13] MEDS: FUROSEMIDE 40MG/4ML VIAL IVP SCH (14:39)
[2021-12-13] MEDS: BUDESONIDE 0.5MG/2ML NEB HHN SCH ×2 (15:05→21:24)
[2021-12-13 18:13] LABS: BASOPHILS % 1.1 % (0.0-2.0); EOSINOPHILS % 2.7 % (0.0-5.0); HEMATOCRIT. 34.2 % (36.0-48.0); HEMOGLOBIN. 11.7 g/dL (12.0-16.0); LYMPHOCYTES % 22.6 % (20.0-50.0); MEAN CORPUSCULAR HEMOGLOBIN 32.2 pg (28.0-32.0); MEAN CORPUSCULAR VOLUME 94.4 fL (81.0-99.0); MONOCYTES % 7.3 % (2.0-8.0); NEUTROPHILS % 66.3 % (40.0-76.0); RED BLOOD CELL COUNT 3.62 mill/uL (4.2-5.4); RED CELL DISTRIBUTION WIDTH 15.8 % (11.6-14.6)
[2021-12-13 18:20] LABS: CHLORIDE 100 mEq/L (98-107)
[2021-12-13] MEDS: ACETAMINOPHEN 325MG TABLET PO PRN (21:14)
[2021-12-13] MEDS ORDERED: CLON0.5T4 PO (22:39)
[2021-12-13] MEDS ORDERED: NIFE-33 PO (22:39)
[2021-12-13] MEDS ORDERED: PROM25TA13 PO (22:39)
[2021-12-13] MEDS ORDERED: MAGN400T26 PO (22:39)
[2021-12-14] VITALS: BP 164/82
[2021-12-14 00:13] VITALS: BP 150/49
[2021-12-14] MEDS: GUAIFENESIN-DM 200MG-20MG/10ML UDC PO PRN (00:38)
[2021-12-14] MEDS: HYDROXYZINE 25MG TABLET PO PRN ×3 (01:25→20:54)
[2021-12-14] MEDS: IPRATROPIUM/ALBUTEROL 0.5-3(2.5)MG/3ML NEB HHN SCH ×4 (01:43→21:15)
[2021-12-14] MEDS: LEVOTHYROXINE SODIUM 112MCG TABLET PO SCH (06:36)
[2021-12-14 08:00] VITALS: BP 143/56
[2021-12-14 08:14] LABS: BASOPHILS % 0.5 % (0.0-2.0); EOSINOPHILS % 3.5 % (0.0-5.0); HEMATOCRIT. 32.9 % (36.0-48.0); HEMOGLOBIN. 11.4 g/dL (12.0-16.0); LYMPHOCYTES % 22.6 % (20.0-50.0); MEAN CORPUSCULAR HEMOGLOBIN 32.5 pg (28.0-32.0); MEAN CORPUSCULAR VOLUME 93.7 fL (81.0-99.0); MEAN PLATELET VOLUME 7.5 fl (7.4-10.4); MONOCYTES % 9.1 % (2.0-8.0); NEUTROPHILS % 64.3 % (40.0-76.0); PLATELET 346 x1000/uL (130-400); RED BLOOD CELL COUNT 3.51 mill/uL (4.2-5.4); RED CELL DISTRIBUTION WIDTH 15.4 % (11.6-14.6)
[2021-12-14] MEDS: BUDESONIDE 0.5MG/2ML NEB HHN SCH ×2 (08:17→21:15)
[2021-12-14 08:30] LABS: CHLORIDE 99 mEq/L (98-107)
[2021-12-14] MEDS: CHOLECALCIFEROL (D3) 1000 UNIT TABLET PO SCH (09:51)
[2021-12-14] MEDS: FERROUS SULFATE 325MG TABLET PO SCH (09:51)
[2021-12-14] MEDS: HYDRALAZINE HCL 25MG TABLET PO SCH ×2 (09:56→20:54)
[2021-12-14] MEDS: ZINC SULFATE 220 MG ( 50 ) CAPSULE PO SCH (09:56)
[2021-12-14] MEDS: SPIRONOLACTONE 25MG TABLET PO SCH (09:56)
[2021-12-14] MEDS: ASCORBIC ACID 500 MG TABLET PO SCH ×2 (09:56→20:54)
[2021-12-14] MEDS: GABAPENTIN 100MG CAPSULE PO SCH (09:56)
[2021-12-14] MEDS: FAMOTIDINE 20MG TABLET PO SCH ×2 (09:56→20:54)
[2021-12-14] MEDS: FUROSEMIDE 40MG/4ML VIAL IVP SCH (09:57)
[2021-12-14] MEDS: ENOXAPARIN 30MG/0.3ML SYR SUBCUT SCH ×2 (09:57→20:55)
[2021-12-14] MEDS: MIRTAZAPINE 15MG TABLET PO SCH (09:57)
[2021-12-14] MEDS: ASPIRIN 81MG EC TABLET PO SCH (09:57)
[2021-12-14] MEDS ORDERED: PSYL575P22 PO ×2 (11:31)
[2021-12-14] MEDS ORDERED: TUSSL PO ×2 (11:31)
[2021-12-14] MEDS ORDERED: MOM PO ×2 (11:31)
[2021-12-14] MEDS ORDERED: GABA-529 PO ×2 (11:31)
[2021-12-14] MEDS ORDERED: HYDR-3735 PO ×2 (11:31)
[2021-12-14] MEDS ORDERED: HYDR-4134 PO ×2 (11:31)
[2021-12-14] MEDS ORDERED: MYL30 PO ×2 (11:31)
[2021-12-14] MEDS ORDERED: CHOL-36 PO ×2 (11:31)
[2021-12-14] MEDS ORDERED: LEVO112T7 PO ×2 (11:31)
[2021-12-14] MEDS ORDERED: FAMO20TA8 PO ×2 (11:31)
[2021-12-14] MEDS ORDERED: ZOLP5TAB2 PO (11:31)
[2021-12-14] MEDS ORDERED: ACET-2424 PO ×2 (11:36)
[2021-12-14 12:00] VITALS: BP 146/59
[2021-12-14] MEDS ORDERED: FUROSEMIDE 40MG/4 ML UDC PO SCH (13:00)
[2021-12-14] MEDS: ACETAMINOPHEN 325MG TABLET PO PRN (15:42)
[2021-12-14 16:00] VITALS: BP 147/52
[2021-12-14] MEDS: FUROSEMIDE 40MG/4 ML UDC PO SCH (16:52)
[2021-12-14 20:00] VITALS: BP 147/47
[2021-12-15] VITALS: BP 164/82
[2021-12-15] MEDS: GUAIFENESIN-DM 200MG-20MG/10ML UDC PO PRN ×3 (00:23→11:57)
[2021-12-15] MEDS: CLONIDINE 0.1MG TABLET PO PRN (00:24)
[2021-12-15] MEDS: IPRATROPIUM/ALBUTEROL 0.5-3(2.5)MG/3ML NEB HHN SCH ×3 (02:24→14:04)
[2021-12-15 04:00] VITALS: BP 131/51
[2021-12-15] MEDS: LEVOTHYROXINE SODIUM 112MCG TABLET PO SCH (06:04)
[2021-12-15 08:00] VITALS: BP 169/60
[2021-12-15] MEDS: FUROSEMIDE 40MG/4 ML UDC PO SCH (09:00)
[2021-12-15] MEDS ORDERED: POTASSIUM CHLORIDE 20MEQ/PACKET PO SCH (09:00)
[2021-12-15] MEDS ORDERED: FUROSEMIDE 40MG/4 ML UDC PO SCH (09:00)
[2021-12-15] MEDS: CHOLECALCIFEROL (D3) 1000 UNIT TABLET PO SCH (09:09)
[2021-12-15] MEDS: GABAPENTIN 100MG CAPSULE PO SCH (09:09)
[2021-12-15] MEDS: ASPIRIN 81MG EC TABLET PO SCH (09:09)
[2021-12-15] MEDS: ZINC SULFATE 220 MG ( 50 ) CAPSULE PO SCH (09:09)
[2021-12-15] MEDS: FAMOTIDINE 20MG TABLET PO SCH (09:09)
[2021-12-15] MEDS: ENOXAPARIN 30MG/0.3ML SYR SUBCUT SCH (09:09)
[2021-12-15] MEDS: MIRTAZAPINE 15MG TABLET PO SCH (09:09)
[2021-12-15] MEDS: HYDRALAZINE HCL 25MG TABLET PO SCH (09:10)
[2021-12-15] MEDS: SPIRONOLACTONE 25MG TABLET PO SCH (09:10)
[2021-12-15] MEDS: ASCORBIC ACID 500 MG TABLET PO SCH (09:10)
[2021-12-15] MEDS ORDERED: MULT-379 PO (09:32)
[2021-12-15] MEDS ORDERED: LEVO112T7 PO (09:40)
[2021-12-15] MEDS ORDERED: MIRT-89 PO (09:40)
[2021-12-15] MEDS ORDERED: ACET-2424 PO (09:40)
[2021-12-15] MEDS ORDERED: FERR325T30 PO (09:40)
[2021-12-15] MEDS ORDERED: CELE100C97 PO (09:40)
[2021-12-15] MEDS ORDERED: MYL30 PO (09:40)
[2021-12-15] MEDS ORDERED: FAMO20TA8 PO (09:40)
[2021-12-15] MEDS ORDERED: FURO40TA5 PO (09:40)
[2021-12-15] MEDS ORDERED: HYDR-3735 PO (09:40)
[2021-12-15] MEDS ORDERED: GABA-529 PO (09:40)
[2021-12-15] MEDS ORDERED: PSYL575P22 PO (09:40)
[2021-12-15] MEDS ORDERED: SPIR25TA PO (09:40)
[2021-12-15] MEDS ORDERED: ASPI-1497 PO (09:40)
[2021-12-15] MEDS ORDERED: TUSSL PO (09:40)
[2021-12-15] MEDS ORDERED: HYDR-4134 PO (09:40)
[2021-12-15 09:47] VITALS: BP 150/62
[2021-12-15 12:00] VITALS: BP 97/42
[2021-12-15 16:00] VITALS: BP 110/41
[2021-12-15] MEDS: GUAIFENESIN 200MG/10ML SUGAR FREE UDC PO PRN (16:15)
[2021-12-30] MEDS ORDERED: ZOLP5TAB2 PO (15:42)
[2022-01-08] MEDS ORDERED: MECL-159 PO (17:57)
== END 2021-12-15 17:40 | disposition home health service (06) | DRG 871 ==
LOC: ER 04:29 → 7EST 06:25 → SUPCPDRO 07:40 → ENRESERV 13:51 → 7EST 18:34
PROVIDERS: ADMIT Internal Medicine; ATTEND Internal Medicine
PROC: 5A09357 Assistance with Respiratory Ventilation, Less than 24 Consecutive Hours, Continuous Positive Airway Pressure (ICD-10-PCS; principal; 2021-12-13)
PROC: 5A09357 Assistance with Respiratory Ventilation, Less than 24 Consecutive Hours, Continuous Positive Airway Pressure (ICD-10-PCS; 2021-12-14)
DX: A41.9 Sepsis, unspecified organism (principal); J18.9 Pneumonia, unspecified organism; I50.33 Acute on chronic diastolic (congestive) heart failure; G92.8 Other toxic encephalopathy; J96.01 Acute respiratory failure with hypoxia; J96.02 Acute respiratory failure with hypercapnia; E44.1 Mild protein-calorie malnutrition; E87.0 Hyperosmolality and hypernatremia; Z68.41 Body mass index [BMI] 40.0-44.9, adult; R65.20 Severe sepsis without septic shock; E03.9 Hypothyroidism, unspecified; I11.0 Hypertensive heart disease with heart failure; E05.90 Thyrotoxicosis, unspecified without thyrotoxic crisis or storm; K43.9 Ventral hernia without obstruction or gangrene; Z20.822 Contact with and (suspected) exposure to COVID-19; E66.9 Obesity, unspecified; D64.9 Anemia, unspecified; E11.9 Type 2 diabetes mellitus without complications; F03.90 Unspecified dementia, unspecified severity, without behavioral disturbance, psychotic disturbance, mood disturbance, and anxiety; N28.1 Cyst of kidney, acquired; I48.0 Paroxysmal atrial fibrillation; I25.10 Atherosclerotic heart disease of native coronary artery without angina pectoris; I16.0 Hypertensive urgency; I08.0 Rheumatic disorders of both mitral and aortic valves; K76.0 Fatty (change of) liver, not elsewhere classified; I27.20 Pulmonary hypertension, unspecified; J98.01 Acute bronchospasm; Z86.16 Personal history of COVID-19; Z74.01 Bed confinement status; I25.2 Old myocardial infarction; Z88.5 Allergy status to narcotic agent; Z79.899 Other long term (current) drug therapy; Z88.2 Allergy status to sulfonamides; Z79.82 Long term (current) use of aspirin; R45.1 Restlessness and agitation; K57.90 Diverticulosis of intestine, part unspecified, without perforation or abscess without bleeding; R77.8 Other specified abnormalities of plasma proteins; R41.0 Disorientation, unspecified
CPT/HCPCS: 36415; 36600; 71045; 71275; 74177; 80048; 80053; 80061; 80305; 80320; 81003; 82375; 82550; 82553; 82607; 82746; 82805; 83036; 83540; 83550; 83605; 83735; 83880; 84100; 84145; 84443; 84484; 85025; 87015; 87045; 87426; 87427; 87449; 89055; 93005; 93306; 93970; 94640; 94660; 99291; C1893; J0360; J0456; J0696; J1650; J1940; J2060; J2543; J2930; J3475; J3490; J7030; J7040; J7060; J7626; Q9963; Q9967; G0480